=== PATIENT | female | born 1965 | race Caucasian/White ===

== ENCOUNTER → 2016-09-24 | Outpatient (REF) | payer BC | LOC: M LAB REF 13:08 | PROVIDERS: ATTEND Internal Medicine | DX: Z85.038 Personal history of other malignant neoplasm of large intestine (principal) ==

== ENCOUNTER → 2016-10-26 | Outpatient (REF) | payer BC ==
[2016-10-26 14:09] LABS: FERRITIN 55 NG/ML (8-252); PERCENT SATURATION 32.1 % (13.2-37.4); TOTAL IRON BINDING CAPACITY 318 UG/DL (250-450)
== END ==
LOC: M LAB REF 12:47
PROVIDERS: ATTEND Internal Medicine
DX: R79.89 Other specified abnormal findings of blood chemistry (principal)

== ENCOUNTER → 2016-11-15 | Outpatient (REF) | payer BC | LOC: M LAB REF 16:18 | PROVIDERS: ATTEND Obstetrics & Gynecology | DX: Z13.89 Encounter for screening for other disorder (principal) ==

== ENCOUNTER → 2018-09-28 | Outpatient (REF) | payer BC | LOC: M LAB REF 12:34 | PROVIDERS: ATTEND Internal Medicine | DX: Z85.038 Personal history of other malignant neoplasm of large intestine (principal) ==

== ENCOUNTER → 2019-10-03 | Outpatient (REF) | payer BC | LOC: M LAB REF 12:11 | PROVIDERS: ATTEND Internal Medicine | DX: Z85.038 Personal history of other malignant neoplasm of large intestine (principal) ==

== ENCOUNTER 2021-10-07 04:26 | Inpatient (IN) | payer BC ==
[~2021-10-07] VITALS: Ht 175.3 cm; Wt 61.8 kg
[2021-10-07] MEDS ORDERED: ALPR0.25 PO (04:32)
[2021-10-07] MEDS ORDERED: FLUO10CA18 PO (04:32)
[2021-10-07 04:59] LABS: BASO # 0.1 10^3/uL (0.0-0.2); BASO % 0.6 % (0.0-1.0); EOS # 0.2 10^3/uL (0.0-0.5); EOS % 1.5 % (0.0-3.0); HEMOGLOBIN 13.8 g/dl (12.0-15.5); LYMPH # 2.7 10^3/uL (1.5-5.0); LYMPH % 20.9 % (24.0-44.0); MEAN CORPUSCULAR HEMOGLOBIN 29.6 pg (27.0-33.0); MEAN CORPUSCULAR HGB CONC 32.1 g/dl (32.0-36.5); MEAN CORPUSCULAR VOLUME 92.1 fl (80.0-96.0); MONO # 0.8 10^3/uL (0.0-0.8); MONO % 6.3 % (2.0-8.0); NEUTROPHILS # 9.1 10^3/uL (1.5-8.5); NEUTROPHILS % 70.4 % (36.0-66.0); PLATELET COUNT, AUTOMATED 323 10^3/uL (150-450); RED BLOOD COUNT 4.67 10^6/uL (4.00-5.40)
[2021-10-07] MEDS ORDERED: KETOROLAC 30 MG/ML 1ML VIAL IV ONE (05:10)
[2021-10-07] MEDS ORDERED: ONDANSETRON 4MG/2ML VIAL IV ONE (05:10)
[2021-10-07 05:25] LABS: CK-MB VALUE MASS 1.4 NG/ML (<3.6); MB/CK RELATIVE INDEX 2.19 (< OR =4)
[2021-10-07 05:28] LABS: ALBUMIN 3.9 GM/DL (3.2-5.2); ALT/SGPT 22 U/L (12-78); AMYLASE 63 U/L (25-115); BILIRUBIN,DIRECT 0.2 MG/DL (0.0-0.2); BILIRUBIN,TOTAL 0.8 MG/DL (0.2-1.0); BLOOD UREA NITROGEN 20 MG/DL (7-18); CALCIUM LEVEL 9.9 MG/DL (8.5-10.1); CARBON DIOXIDE LEVEL 26 MEQ/L (21-32); CHLORIDE LEVEL 107 MEQ/L (98-107); CREATININE FOR GFR 0.84 MG/DL (0.55-1.30); GLOMERULAR FILTRATION RATE > 60.0 (>51); GLUCOSE, FASTING 137 MG/DL (70-100); LIPASE 130 U/L (73-393); POTASSIUM SERUM 3.5 MEQ/L (3.5-5.1); SODIUM LEVEL 143 MEQ/L (136-145); TOTAL PROTEIN 7.7 GM/DL (6.4-8.2)
[2021-10-07 05:33] LABS: BILIRUBIN, URINE MANUAL NEGATIVE (NEGATIVE); GLUCOSE, URINE (UA) MANUAL NEGATIVE (NEGATIVE); KETONE, URINE MANUAL NEGATIVE (NEGATIVE); UROBILINOGEN, URINE MANUAL NORMAL (NORMAL)
[2021-10-07 05:37] LABS: CALCIUM OXALATE CRYSTALS,URINE SMALL AMOUNT /hpf; HYALINE CAST, URINE NONE SEEN /lpf (0-1); RBC, URINE NONE SEEN /hpf (0-3); SQUAMOUS EPITHELIAL CELL URINE SMALL AMOUNT /hpf (SMALL AMT)
[2021-10-07 05:38] LABS: BACTERIA, URINE NONE SEEN
[2021-10-07] MEDS ORDERED: ISOVUE-370 76% 100ML VIAL As Ordered ONE (06:00)
[2021-10-07] MEDS: GASTROGRAFIN SOLUTION 30ML PO SCH ×2 (06:04→06:33)
[2021-10-07] MEDS ORDERED: LORazepam 2 MG/ML VIAL IV STA (09:12)
[2021-10-07] MEDS ORDERED: MORPHINE 4 MG/ML 1ML VIAL/SYRINGE IV PRN (09:55)
[2021-10-07] MEDS ORDERED: ESTR1MIS VG (10:40)
[2021-10-07] MEDS ORDERED: HOME MED LIST COMPLETE! XX SCH (10:40)
[2021-10-07] MEDS: NS 1,000 ML IV SCH ×2 (10:49→23:38)
[2021-10-07] MEDS: MORPHINE 4 MG/ML 1ML VIAL/SYRINGE IV PRN ×2 (10:49→21:56)
[2021-10-07] MEDS: ENOXAPARIN 40MG/0.4ML SYRINGE (J1650 PER 10MG) SC SCH (10:49)
[2021-10-07] MEDS: ONDANSETRON 4MG/2ML VIAL IV PRN (10:50)
[2021-10-07 11:37] LABS: RSV AMPLIFICATION NEGATIVE (NEGATIVE)
[2021-10-07 11:39] LABS: INR 0.97; PARTIAL THROMBOPLASTIN TIME 29.1 SECONDS (25.9-37.0); PROTHROMBIN TIME 13.3 SECONDS (12.7-14.5)
[2021-10-07 13:30] VITALS: BP 133/82
[2021-10-07] MEDS: LORazepam 2 MG/ML VIAL IV SCH (21:52)
[2021-10-08] MEDS: MORPHINE 4 MG/ML 1ML VIAL/SYRINGE IV PRN (04:14)
[2021-10-08 05:44] VITALS: BP 144/74
[2021-10-08 07:13] LABS: HEMATOCRIT 40.1 % (36.0-47.0); HEMOGLOBIN 12.5 g/dl (12.0-15.5); MEAN CORPUSCULAR HEMOGLOBIN 29.3 pg (27.0-33.0); MEAN CORPUSCULAR HGB CONC 31.2 g/dl (32.0-36.5); MEAN CORPUSCULAR VOLUME 93.9 fl (80.0-96.0); PLATELET COUNT, AUTOMATED 262 10^3/uL (150-450); RED BLOOD COUNT 4.27 10^6/uL (4.00-5.40); WHITE BLOOD COUNT 8.9 10^3/uL (4.0-10.0)
[2021-10-08 07:40] LABS: ALBUMIN 3.1 GM/DL (3.2-5.2); ALT/SGPT 19 U/L (12-78); BILIRUBIN,TOTAL 0.8 MG/DL (0.2-1.0); BLOOD UREA NITROGEN 11 MG/DL (7-18); CALCIUM LEVEL 8.9 MG/DL (8.5-10.1); CARBON DIOXIDE LEVEL 29 MEQ/L (21-32); CHLORIDE LEVEL 109 MEQ/L (98-107); CREATININE FOR GFR 0.63 MG/DL (0.55-1.30); GLOMERULAR FILTRATION RATE > 60.0 (>51); GLUCOSE, FASTING 86 MG/DL (70-100); POTASSIUM SERUM 4.8 MEQ/L (3.5-5.1); SODIUM LEVEL 142 MEQ/L (136-145); TOTAL PROTEIN 5.8 GM/DL (6.4-8.2)
[2021-10-08] MEDS: ENOXAPARIN 40MG/0.4ML SYRINGE (J1650 PER 10MG) SC SCH (09:01)
[2021-10-08] MEDS: NS 1,000 ML IV SCH ×2 (09:02→18:57)
[2021-10-08] MEDS: ONDANSETRON 4MG/2ML VIAL IV PRN ×2 (09:04→22:16)
[2021-10-08] MEDS: CHLORASEPTIC SPRAY MT PRN (12:08)
[2021-10-08 14:00] VITALS: BP 120/68
[2021-10-08 19:41] VITALS: BP 122/69
[2021-10-08] MEDS: LORazepam 2 MG/ML VIAL IV SCH (22:04)
[2021-10-09] MEDS ORDERED: FLUTICASONE PROP 0.05% NASAL SPRAY 16 GM (FLONASE) NARES PRN (01:55)
[2021-10-09] MEDS ORDERED: ACETAMINOPHEN *IV* 1,000 MG in IV 1 EA IV ONE ×2 (03:00→10:00)
[2021-10-09 05:08] VITALS: BP 119/61
[2021-10-09] MEDS: NS 1,000 ML IV SCH (05:31)
[2021-10-09 07:35] LABS: HEMATOCRIT 38.7 % (36.0-47.0); HEMOGLOBIN 12.5 g/dl (12.0-15.5); MEAN CORPUSCULAR HGB CONC 32.3 g/dl (32.0-36.5); MEAN CORPUSCULAR VOLUME 92.8 fl (80.0-96.0); PLATELET COUNT, AUTOMATED 271 10^3/uL (150-450); RED BLOOD COUNT 4.17 10^6/uL (4.00-5.40); WHITE BLOOD COUNT 10.7 10^3/uL (4.0-10.0)
[2021-10-09 07:59] LABS: ALT/SGPT 16 U/L (12-78); BILIRUBIN,TOTAL 1.2 MG/DL (0.2-1.0); BLOOD UREA NITROGEN 13 MG/DL (7-18); CALCIUM LEVEL 9.4 MG/DL (8.5-10.1); CARBON DIOXIDE LEVEL 26 MEQ/L (21-32); CHLORIDE LEVEL 108 MEQ/L (98-107); CREATININE FOR GFR 0.73 MG/DL (0.55-1.30); GLOMERULAR FILTRATION RATE > 60.0 (>51); GLUCOSE, FASTING 66 MG/DL (70-100); POTASSIUM SERUM 4.4 MEQ/L (3.5-5.1); SODIUM LEVEL 143 MEQ/L (136-145); TOTAL PROTEIN 6.1 GM/DL (6.4-8.2)
[2021-10-09] MEDS ORDERED: GLUCAGON INJ 1MG VIAL SC PRN (08:15)
[2021-10-09] MEDS ORDERED: GLUCOSE 4GM CHEW TABLET PO PRN (08:15)
[2021-10-09] MEDS: ENOXAPARIN 40MG/0.4ML SYRINGE (J1650 PER 10MG) SC SCH (08:36)
[2021-10-09] MEDS: DEXTROSE 50% 50 ML SYRINGE IV PRN ×2 (08:36→16:46)
[2021-10-09] MEDS: ONDANSETRON 4MG/2ML VIAL IV PRN ×2 (11:09→17:11)
[2021-10-09] MEDS: LevoFLOXacin IV 500 MG in IV 1 EA IV SCH (12:56)
[2021-10-09 14:00] VITALS: BP 126/84
[2021-10-09] MEDS: D5W/0.45% SODIUM CHLORIDE 1,000 ML IV SCH (17:11)
[2021-10-09] MEDS: PANTOPRAZOLE 40MG VIAL IV SCH (21:04)
[2021-10-09] MEDS: SODIUM CHLORIDE NASAL 0.65% SPRAY BTL (OCEAN) PRN (21:06)
[2021-10-09] MEDS: CHLORASEPTIC SPRAY MT PRN ×2 (21:12→22:58)
[2021-10-09 22:00] VITALS: BP 131/82
[2021-10-09] MEDS: LORazepam 2 MG/ML VIAL IV SCH (22:59)
[2021-10-09] MEDS ORDERED: KETOROLAC 30 MG/ML 1ML VIAL IV ONE (23:10)
[2021-10-09] MEDS ORDERED: diphenhydrAMINE 50MG/ML VIAL (J1200) IV ONE (23:10)
[2021-10-10] MEDS: D5W/0.45% SODIUM CHLORIDE 1,000 ML IV SCH (04:18)
[2021-10-10] MEDS: CHLORASEPTIC SPRAY MT PRN (04:25)
[2021-10-10] MEDS: SODIUM CHLORIDE NASAL 0.65% SPRAY BTL (OCEAN) PRN ×3 (04:26→23:41)
[2021-10-10] MEDS ORDERED: diphenhydrAMINE 50MG/ML VIAL (J1200) IV ONE (04:30)
[2021-10-10] MEDS ORDERED: KETOROLAC 30 MG/ML 1ML VIAL IV ONE (04:30)
[2021-10-10 06:00] VITALS: BP 115/64
[2021-10-10 06:01] LABS: HEMATOCRIT 35.2 % (36.0-47.0); HEMOGLOBIN 11.6 g/dl (12.0-15.5); MEAN CORPUSCULAR HEMOGLOBIN 30.3 pg (27.0-33.0); MEAN CORPUSCULAR VOLUME 91.9 fl (80.0-96.0); PLATELET COUNT, AUTOMATED 247 10^3/uL (150-450); RED BLOOD COUNT 3.83 10^6/uL (4.00-5.40)
[2021-10-10 06:32] LABS: ALBUMIN 2.9 GM/DL (3.2-5.2); ALT/SGPT 13 U/L (12-78); BLOOD UREA NITROGEN 7 MG/DL (7-18); CALCIUM LEVEL 9.1 MG/DL (8.5-10.1); CARBON DIOXIDE LEVEL 28 MEQ/L (21-32); CHLORIDE LEVEL 108 MEQ/L (98-107); GLOMERULAR FILTRATION RATE > 60.0 (>51); GLUCOSE, FASTING 101 MG/DL (70-100); POTASSIUM SERUM 3.5 MEQ/L (3.5-5.1); SODIUM LEVEL 144 MEQ/L (136-145); TOTAL PROTEIN 5.8 GM/DL (6.4-8.2)
[2021-10-10] MEDS: MIRALAX *UNIT DOSE* 17GM PACKET PO SCH (09:28)
[2021-10-10] MEDS: ENOXAPARIN 40MG/0.4ML SYRINGE (J1650 PER 10MG) SC SCH (09:29)
[2021-10-10] MEDS: LevoFLOXacin IV 500 MG in IV 1 EA IV SCH (13:41)
[2021-10-10 14:00] VITALS: BP 118/85
[2021-10-10] MEDS ORDERED: ALPRAZolam 0.25 MG TAB PO SCH (21:00)
[2021-10-10 22:00] VITALS: BP 124/76
[2021-10-10] MEDS ORDERED: hydrOXYzine 25 MG TAB PO ONE (22:45)
[2021-10-10] MEDS: PANTOPRAZOLE 40MG VIAL IV SCH (23:40)
[2021-10-11 06:00] VITALS: BP 122/74
[2021-10-11 06:30] LABS: HEMATOCRIT 36.7 % (36.0-47.0); HEMOGLOBIN 11.9 g/dl (12.0-15.5); MEAN CORPUSCULAR HEMOGLOBIN 29.9 pg (27.0-33.0); MEAN CORPUSCULAR HGB CONC 32.4 g/dl (32.0-36.5); MEAN CORPUSCULAR VOLUME 92.2 fl (80.0-96.0); PLATELET COUNT, AUTOMATED 245 10^3/uL (150-450); RED BLOOD COUNT 3.98 10^6/uL (4.00-5.40); WHITE BLOOD COUNT 8.6 10^3/uL (4.0-10.0)
[2021-10-11 07:02] LABS: ALT/SGPT 27 U/L (12-78); BILIRUBIN,TOTAL 0.9 MG/DL (0.2-1.0); BLOOD UREA NITROGEN 7 MG/DL (7-18); CALCIUM LEVEL 9.4 MG/DL (8.5-10.1); CARBON DIOXIDE LEVEL 28 MEQ/L (21-32); CHLORIDE LEVEL 110 MEQ/L (98-107); CREATININE FOR GFR 0.79 MG/DL (0.55-1.30); GLOMERULAR FILTRATION RATE > 60.0 (>51); GLUCOSE, FASTING 78 MG/DL (70-100); POTASSIUM SERUM 4.1 MEQ/L (3.5-5.1); SODIUM LEVEL 145 MEQ/L (136-145); TOTAL PROTEIN 6.1 GM/DL (6.4-8.2)
[2021-10-11] MEDS ORDERED: COLA100C5 PO (08:06)
[2021-10-11] MEDS ORDERED: LEVO250T3 PO (08:06)
[2021-10-11] MEDS ORDERED: MIRA1POW3 PO (08:06)
[2021-10-11] MEDS: ENOXAPARIN 40MG/0.4ML SYRINGE (J1650 PER 10MG) SC SCH (09:00)
[2021-10-11] MEDS: MIRALAX *UNIT DOSE* 17GM PACKET PO SCH (09:18)
[2021-10-11] MEDS ORDERED: AMOX875T2 PO (09:55)
[2021-10-11] MEDS ORDERED: ALPRAZolam 0.25 MG TAB PO SCH (21:00)
== END 2021-10-11 13:15 | disposition home or self-care (01) | DRG 247 ==
LOC: M ED 04:26 → M ED INP 09:52 → ENRESERV 12:08 → M MSPAV 13:37
PROVIDERS: ADMIT Internal Medicine; ATTEND Internal Medicine
DX: K56.51 Intestinal adhesions [bands], with partial obstruction (principal); E16.2 Hypoglycemia, unspecified; F41.9 Anxiety disorder, unspecified; J45.909 Unspecified asthma, uncomplicated; Z85.038 Personal history of other malignant neoplasm of large intestine; Z79.899 Other long term (current) drug therapy; Z88.8 Allergy status to other drugs, medicaments and biological substances; K57.30 Diverticulosis of large intestine without perforation or abscess without bleeding

== ENCOUNTER → 2021-12-16 | Outpatient (CLI) | payer BC ==
[~2021-12-16] MED LIST: ALPR0.25 PO; AMOX875T2 PO; COLA100C5 PO; ESTR1MIS VG; FLUO10CA18 PO; LEVO250T3 PO; MIRA1POW3 PO
== END ==
LOC: M WUC 11:52
PROVIDERS: ATTEND Internal Medicine
DX: R05.9 Cough, unspecified (principal)

== ENCOUNTER → 2022-06-09 | Outpatient (REF) | payer BC ==
[~2022-06-09] MED LIST changes: +LEVO1TAB38 PO; -LEVO250T3 PO
== END ==
LOC: M SFHCWAGY 14:58
PROVIDERS: ATTEND Nurse Practitioner Family
DX: Z12.4 Encounter for screening for malignant neoplasm of cervix (principal); Z77.9 Other contact with and (suspected) exposures hazardous to health
CPT/HCPCS: 87624; G0123

== ENCOUNTER → 2022-12-21 | Outpatient (CLI) | payer BC | LOC: M WHC 10:24 | PROVIDERS: ATTEND Internal Medicine | DX: M85.80 Other specified disorders of bone density and structure, unspecified site (principal) ==

== ENCOUNTER → 2023-06-14 | Outpatient (REF) | payer BC ==
[~2023-06-14] MED LIST changes: -ESTR1MIS VG; +ESTR1VAG3 VG
== END ==
LOC: M LAB REF 16:40
PROVIDERS: ATTEND Nurse Practitioner Family
DX: M25.532 Pain in left wrist (principal)

== ENCOUNTER → 2023-06-17 | Outpatient (CLI) | payer BC | LOC: M WUC 10:47 | PROVIDERS: ATTEND Nurse Practitioner Family | DX: M25.532 Pain in left wrist (principal); M81.0 Age-related osteoporosis without current pathological fracture ==

== ENCOUNTER → 2023-07-06 | Outpatient (REF) | payer BC ==
[~2023-07-06] MED LIST changes: -MIRA1POW3 PO; +MIRA33506 PO
== END ==
LOC: M SFHCWAGY 15:43
PROVIDERS: ATTEND Nurse Practitioner Family
DX: Z12.4 Encounter for screening for malignant neoplasm of cervix (principal)
CPT/HCPCS: 87624; G0123

== ENCOUNTER 2024-09-06 09:12 | Emergency (ER) | payer OTHER ==
[~2024-09-06] VITALS: Ht 175.3 cm; Wt 63.6 kg
[~2024-09-06 09:12] MED LIST changes: -ALEN70TA82 PO; -ATOR1TAB19 PO; -FLOM0.4C39 PO; -KETO10TAB PO; -MAGN400C PO; -OMEP40CA4 PO; -ONDA-282 PO; -PERC5TAB12 PO; -XANA0.5T PO
[2024-09-06 09:17] VITALS: TEMP 97.3
[2024-09-06] MEDS ORDERED: FLUO-290 PO (09:33)
[2024-09-06] MEDS ORDERED: ALEN70TA82 PO (09:33)
[2024-09-06] MEDS ORDERED: MAGN400C PO (09:33)
[2024-09-06] MEDS ORDERED: OMEP40CA4 PO (09:33)
[2024-09-06] MEDS ORDERED: ATOR1TAB19 PO (09:33)
[2024-09-06] MEDS ORDERED: XANA0.5T PO (09:33)
[2024-09-06 10:30] LABS: KETONE, URINE AUTO RFX NEGATIVE (NEGATIVE); MUCUS, URINE RFX SMALL (NEGATIVE); NITRITE, URINE AUTO RFX NEGATIVE (NEGATIVE); RBC, URINE AUTO RFX 25 /HPF (0-3); SQUAM EPITHELIAL CELL UR AURFX 1 /HPF (0-6); WBC, URINE AUTO RFX 8 /HPF (0-3)
[2024-09-06 10:31] LABS: BASO # 0.1 10^3/uL (0.0-0.2); BASO % 0.7 % (0.0-1.0); EOS # 0.3 10^3/uL (0.0-0.5); EOS % 3.2 % (0.0-3.0); HEMATOCRIT 41.5 % (36.0-47.0); HEMOGLOBIN 13.4 g/dl (12.0-15.5); LYMPH # 1.4 10^3/uL (1.5-5.0); LYMPH % 15.3 % (24.0-44.0); MEAN CORPUSCULAR HGB CONC 32.3 g/dl (32.0-36.5); MEAN CORPUSCULAR VOLUME 89.8 fl (80.0-96.0); MONO # 0.5 10^3/uL (0.0-0.8); NEUTROPHILS # 6.7 10^3/uL (1.5-8.5); NEUTROPHILS % 74.5 % (36.0-66.0); PLATELET COUNT, AUTOMATED 339 10^3/uL (150-450); RED BLOOD COUNT 4.62 10^6/uL (4.00-5.40); WHITE BLOOD COUNT 8.9 10^3/uL (4.0-10.0)
[2024-09-06 10:33] LABS: LEUKOCYTE ESTERASE UR AUTO RFX TRACE (NEGATIVE)
[2024-09-06 11:00] LABS: BLOOD UREA NITROGEN 20 MG/DL (9-23); CARBON DIOXIDE LEVEL 24 MMOL/L (20-31); CHLORIDE LEVEL 107 MMOL/L (98-107); CREATININE FOR GFR 0.69 MG/DL (0.55-1.30); GLOMERULAR FILTRATION RATE > 90.0 (>45); GLUCOSE, FASTING 123 MG/DL (74-106); POTASSIUM SERUM 4.1 MMOL/L (3.5-5.1); SODIUM LEVEL 141 MMOL/L (136-145)
[2024-09-06] MEDS: KETOROLAC 30 MG/ML 1ML VIAL IV ONE (11:35)
[2024-09-06] MEDS: ONDANSETRON 4MG 2ML VIAL IV ONE ×2 (11:35→15:08)
[2024-09-06] MEDS ORDERED: KETO10TAB PO (15:04)
[2024-09-06] MEDS ORDERED: PERC5TAB12 PO (15:04)
[2024-09-06] MEDS ORDERED: ONDA-282 PO (15:04)
[2024-09-06] MEDS ORDERED: FLOM0.4C39 PO (15:04)
[2024-09-06] MEDS: MORPHINE 4 MG/ML 1ML VIAL IV ONE (15:08)
[2024-09-06 15:28] VITALS: BP 132/72; O2SAT 99
== END 2024-09-06 15:30 | disposition home or self-care (01) ==
LOC: MERGE 09:12 → M ED 09:12
DX: N13.2 Hydronephrosis with renal and ureteral calculous obstruction (principal); K44.9 Diaphragmatic hernia without obstruction or gangrene; R91.8 Other nonspecific abnormal finding of lung field; Z79.899 Other long term (current) drug therapy
CPT/HCPCS: 74176; 80048; 81001; 85025; 87086; 96374; 96375; 96376; 99284; J1885; J2405

== ENCOUNTER → 2024-09-06 | Outpatient (REF) | payer OTHER ==
[~2024-09-06] MED LIST changes: +ALEN70TA82 PO; +ATOR1TAB19 PO; +FLOM0.4C39 PO; +FLUO-290 PO; -FLUO10CA18 PO; +KETO10TAB PO; +MAGN400C PO; +OMEP40CA4 PO; +ONDA-282 PO; +PERC5TAB12 PO; +XANA0.5T PO
== END ==
LOC: MERGE 12:23 → M LAB REF 12:23
PROVIDERS: ATTEND Nurse Practitioner Family
DX: R10.30 Lower abdominal pain, unspecified (principal)

== ENCOUNTER → 2024-09-12 | Outpatient (CLI) | payer OTHER ==
[~2024-09-12] MED LIST changes: +ALBU8.5H INH; +ALEN70TA82 PO; +ALPR0.5T3 PO; +ATOR1TAB19 PO; +BACT800T5 PO; +CEFU1TAB22 PO; +CLAR10CA3 PO; +KETO10TAB PO; +MAGN400C PO; +OMEP40CA4 PO; +OMEP40CA5 PO; +ONDA-282 PO; +OXYB5TAB14 PO; +PERC5TAB12 PO; +PYRI1TAB5 PO; +TAMS-18 PO; +XANA0.5T PO
[2024-09-12 08:11] LABS: APPEARANCE, URINE HAZY (CLEAR); BACTERIA, URINE AUTO 1+ (NEGATIVE); BILIRUBIN, URINE AUTO NEGATIVE (NEGATIVE); BLOOD, URINE BLOOD NEGATIVE (NEGATIVE); COLOR, URINE YELLOW (YELLOW); GLUCOSE, URINE (UA) AUTO NEGATIVE (NEGATIVE); KETONE, URINE AUTO NEGATIVE (NEGATIVE); LEUKOCYTE ESTERASE, URINE AUTO 2+ (NEGATIVE); MUCUS, URINE SMALL (NEGATIVE); NITRITE, URINE AUTO NEGATIVE (NEGATIVE); PROTEIN, URINE AUTO NEGATIVE (NEGATIVE); RBC, URINE AUTO 3 /HPF (0-3); SPECIFIC GRAVITY URINE AUTO 1.025 (1.002-1.035); SQUAMOUS EPITHELIAL CELL UR AU 1 /HPF (0-6); WBC, URINE AUTO 35 /HPF (0-3)
== END ==
LOC: M RAD 07:15
PROVIDERS: ATTEND Nurse Practitioner Family
DX: Z01.818 Encounter for other preprocedural examination (principal)

== ENCOUNTER 2024-09-17 10:21 | Day surgery (SDC) | payer OTHER ==
[~2024-09-17] VITALS: Ht 175.3 cm; Wt 61.7 kg
[~2024-09-17 10:21] MED LIST changes: -BACT800T5 PO; -OXYB5TAB14 PO; -PYRI1TAB5 PO
[2024-09-17] MEDS ORDERED: LIDOCAINE 2% 100MG/5ML SDV (FOR ANES.) As Ordered ONE (10:27)
[2024-09-17] MEDS ORDERED: propofoL 200 MG/20 ML VIAL As Ordered ONE (10:27)
[2024-09-17] MEDS ORDERED: fentaNYL 100 MCG/2 ML INJECTION As Ordered ONE (11:37)
[2024-09-17] MEDS ORDERED: ISOVUE-300 61% 100ML VIAL As Ordered ONE (11:38)
[2024-09-17] MEDS ORDERED: MIDAZOLAM INJ 2MG/2ML VIAL As Ordered ONE (11:38)
[2024-09-17] MEDS: ceFAZolin SOD 2 GM IV ONCE IV ONE (11:54)
[2024-09-17] MEDS ORDERED: diphenhydrAMINE 50MG/ML VIAL IV PRN (12:35)
[2024-09-17] MEDS ORDERED: KETOROLAC 30 MG/ML 1ML VIAL As Ordered ONE (12:35)
[2024-09-17] MEDS ORDERED: ONDANSETRON 4MG 2ML VIAL As Ordered ONE (12:35)
[2024-09-17] MEDS ORDERED: ONDANSETRON 4MG 2ML VIAL IV PRN (12:35)
[2024-09-17] MEDS ORDERED: fentaNYL 100 MCG/2 ML INJECTION IV PRN (12:35)
[2024-09-17] MEDS ORDERED: oxyCODONE 5MG TAB PO PRN (12:35)
[2024-09-17] MEDS ORDERED: MEPERIDINE 25 MG/ML 1ML VIAL IV PRN (12:35)
[2024-09-17] MEDS ORDERED: METOCLOPRAMIDE INJ 10MG/2ML VIAL IV PRN (12:35)
[2024-09-17] MEDS ORDERED: LR 1,000 ML IV SCH (12:35)
[2024-09-17] MEDS ORDERED: BACT800T5 PO (12:59)
[2024-09-17] MEDS ORDERED: OXYB5TAB14 PO (12:59)
[2024-09-17] MEDS ORDERED: PYRI1TAB5 PO (12:59)
[2024-09-17] MEDS: oxyBUTYnin 5 MG TAB PO PRN (13:26)
[2024-09-17 14:03] VITALS: BP 131/68; TEMP 97.5; O2SAT 99
== END 2024-09-17 14:17 | disposition home or self-care (01) ==
LOC: M SDC 10:21
PROVIDERS: ATTEND Urology
DX: N20.1 Calculus of ureter (principal); K21.9 Gastro-esophageal reflux disease without esophagitis; J45.909 Unspecified asthma, uncomplicated; F41.9 Anxiety disorder, unspecified; E78.5 Hyperlipidemia, unspecified; Z85.038 Personal history of other malignant neoplasm of large intestine; Z79.899 Other long term (current) drug therapy
CPT/HCPCS: 52356; 76000; 82365; C1769; C1894; C2617; J0690; J1100; J1885; J2250; J2405; J3010; Q9967

== ENCOUNTER → 2025-01-02 | Outpatient (CLI) | payer OTHER ==
[~2025-01-02] MED LIST changes: +BACT800T5 PO; +OXYB5TAB14 PO; +PYRI1TAB5 PO
== END ==
LOC: M WHC 07:48
PROVIDERS: ATTEND Internal Medicine
DX: M81.0 Age-related osteoporosis without current pathological fracture (principal); M85.851 Other specified disorders of bone density and structure, right thigh; M85.852 Other specified disorders of bone density and structure, left thigh

== ENCOUNTER → 2025-01-03 | Outpatient (CLI) | payer OTHER | LOC: M PLAIMG 15:14 | PROVIDERS: ATTEND Internal Medicine | DX: R51.9 Headache, unspecified (principal) ==

== ENCOUNTER → 2025-01-31 | Outpatient (REF) | payer OTHER ==
[2025-02-02 13:57] LABS: HPV APTIMA Not Detected (Not Detected)
== END ==
LOC: M SFHCWAGY 13:08
PROVIDERS: ATTEND Physician Assistant
DX: Z12.4 Encounter for screening for malignant neoplasm of cervix (principal)
CPT/HCPCS: 87624; G0123